=== PATIENT | male | born 1995 ===

== ENCOUNTER 2017-03-29 17:19 | Emergency (ER) | payer BC ==
[2017-03-29 17:31] VITALS: BP 128/71
[2017-03-29] MEDS ORDERED: Lidocaine 1% MPF* 2 ML VIAL INJ ONE (18:58)
[2017-03-29] MEDS ORDERED: Tetan/Diph/Pertus SYR(Tdap)* 0.5 ML SYR(BOOSTRIX) use SYR IM ONE (19:02)
--- NOTE | 2017-03-29 19:23 | UC ---
Laceration HPI - HPI Summary HPI Summary: 21 y/o male presents to the urgent care c/o cutting his left index finger with a glass while washing the dishes around 1700. Pt states bleeding stopped with pressure. Pt can't recall when was his last Tetanus shot. Pain is 4/10 with movement. Pt denies numbness and tingling over hisleft hand, fever, SOB, chest pain, N/V/D - History Of Current Complaint Chief Complaint: UCLaceration Stated Complaint: FINGER LAC Time Seen by Provider: 03/29/17 18:57 Hx Obtained From: Patient Laceration Location: Finger - left #2 index finger Mechanism Of Injury: Sharp Trauma Onset/Duration: Lasting Hours Severity: Moderate Pain Intensity: 4 Pain Scale Used: 0-10 Numeric Aggravating Factors: Movement Related History: Dominant Hand Right - Allergies/Home Medications Allergies/Adverse Reactions: Allergies Allergy/AdvReac Type Severity Reaction Status Date / Time Penicillins Allergy Unknown Unknown Verified 03/29/17 17:31 Reaction Details Sulfa Antibiotics Allergy Unknown Unknown Verified 03/29/17 17:31 Reaction Details Home Medications: Home Medications Finasteride TAB* [Proscar TAB*] 03/29/17 [History] PMH/Surg Hx/FS Hx/Imm Hx Previously Healthy: Yes - Pt dneies PMHX - Surgical History Surgical History: None - Family History Known Family History: Positive: None - Pt denies FMHX - Social History Occupation: Student Lives: With Family Alcohol Use: Occasionally Substance Use Type: Marijuana Smoking Status (MU): Never Smoked Tobacco - Immunization History Most Recent Tetanus Shot: UNKNOWN Review of Systems Constitutional: Negative Skin: Other - Laceration of left index finger Eyes: Negative ENT: Negative Respiratory: Negative Cardiovascular: Negative Gastrointestinal: Negative Genitourinary: Negative Motor: Negative Neurovascular: Negative Musculoskeletal: Negative Neurological: Negative Psychological: Negative Is Patient Immunocompromised?: No All Other Systems Reviewed And Are Negative: Yes Physical Exam Triage Information Reviewed: Yes Vital Signs: Initial Vital Signs Temp 97.2 F 03/29/17 17:28 Pulse 79 03/29/17 17:28 Resp 16 03/29/17 17:28 BP 128/71 03/29/17 17:28 Pulse Ox 100 03/29/17 17:28 - Additional Comments Vital Signs Reviewed: Yes General: well developed, well nourished male sitting in the examining table w/o any apparent distress Eye Exam: Normal Eyes: Positive: Conjunctiva Clear - PERRLA, EOMI, fundi grossly normal ENT: Positive: Normal ENT inspection, Hearing grossly normal, Pharynx normal, TMs normal Neck: Positive: Supple, Nontender, No Lymphadenopathy Respiratory: Positive: Chest non-tender, Lungs clear, Normal breath sounds, No respiratory distress Cardiovascular: Positive: RRR, No Murmur, Pulses Normal, Brisk Capillary Refill Abdomen Description: Positive: Nontender, No Organomegaly, Soft. Negative: CVA Tenderness (R), CVA Tenderness (L) Bowel Sounds: Positive: Present Musculoskeletal: Positive: Strength Intact, ROM Intact, No Edema Neurological: Positive: Alert, Muscle Tone Normal Psychological Exam: Normal Skin: Positive:Dorsal side of left #2 phalanx near MCPJ with superficial linear laceration about 2.2 cm in size, tender to palpation, bleeding mildly. stopped with pressure. FROM of the left #2 phalanx and left hand, sensation intact, capillary refill brisk, and pulses WNL. Laceration Course/Dx - Course/Dx Course Of Treatment: 21 y/o male presents to the urgent care c/o cutting his left index finger with a glass while washing the dishes around 1700. Pt states bleeding stopped with pressure. Pt can't recall when was his last Tetanus shot. Pain is 4/10 with movement. Pt denies numbness and tingling over hisleft hand , fever, SOB, chest pain, N/V/D. Hx obtained.Pt with a superficial linear laceration on the dorsal side of the left #2 phalanx about 2.2cm in size.LACERATION PROCEDURE NOTE: . Copious irrigation was done with saline by the nurse and the wound explored. There was no FB or deep structure injury noted. FROM of left forearm. procedure was explained and consent obtained, Timeout performed. The wound was anesthetized with 2mL of 1 lido with good anesthesia. Sterile drape and prep were don. There were 7 sutures with 5.0 nylon type of suture. The length of the wound after closure was 2.2cm. No debridement done. Wound was covered bacitracin with sterile nonadherent dressing. The Pt tolerated the procedure well without adverse effects. Neurovascular intact and FROM. Tdap ordered and applied by nurse. Pt advised to f/u suture removal in 10 days and if any signs of infection develop to immediately return to the urgent care of PCP for further management and treatment. Pt understood and agreed and left the clinic ambulating A&Ox3. - Differential Dx - Laceration/Wound Differental Diagnoses: Abrasion, Avulsion, Laceration, Puncture Wound, Tendon Laceration Provider Diagnoses: 1- Superficial laceration of the Left #2 phalanx Discharge - Discharge Plan Condition: Stable Disposition: HOME Prescriptions: Bacitracin OINTMENT* 1 applic TOPICAL TID #1 tube Patient Education Materials: Care For Your Stitches (ED) Referrals: [facility] [place] [facility] REFERRAL [Outside] - 1 Week Additional Instructions: 1-Please apply topical antibiotic over the wound. Keep wound clean and dry. Avoid to much flexion of the Finger 3- F/u suture removal in 7-10 days days w/ your PCP or here at the urgent care. 4-Take Ibuprofen or Tylenol PO q6-8hrs prn for pain or swelling. 5- If you develop fever or redness around your finger despite the antibiotic please go to the ER immediately or return to the Urgent care.
== END 2017-03-29 20:17 | disposition home or self-care (01) ==
LOC: UCEAST 17:19
DX: S61.211A Laceration without foreign body of left index finger without damage to nail, initial encounter (principal); W25.XXXA Contact with sharp glass, initial encounter; Y92.9 Unspecified place or not applicable; Z88.0 Allergy status to penicillin; Z88.2 Allergy status to sulfonamides
CPT/HCPCS: 12001; 90715; 96372; 99201; G0463